=== PATIENT | female | born 1960 | race Caucasian/White ===

== ENCOUNTER 2017-02-24 09:50 | Inpatient (IN) | payer OTHER, SELFPAY | END 2017-02-27 09:45 | disposition home or self-care (01) | DRG 740 | PROVIDERS: Admitting Provider Obstetrics & Gynecology; Family Provider Family Medicine; Visit Provider Obstetrics & Gynecology | DX: D62 Acute posthemorrhagic anemia (principal); C54.1 Malignant neoplasm of endometrium; D25.9 Leiomyoma of uterus, unspecified; D27.0 Benign neoplasm of right ovary; N93.8 Other specified abnormal uterine and vaginal bleeding; N92.0 Excessive and frequent menstruation with regular cycle | CPT/HCPCS: 58150; 58925; 36415; 81001; 85014; 85018; 96372; 96375; J0131; J1956; J2405; J2710 ==

== ENCOUNTER → 2017-03-31 08:39 | Outpatient (CLI) | payer OTHER, SELFPAY ==
[2017-03-31 09:23] LABS: Blood Urea Nitrogen 9 mg/dL (7-18); Creatinine,Serum 0.71 mg/dL (0.55-1.02); Estimated Glomerular Filt Rate > 60 ml/min (>60); GFR (African American) > 60 ML/MIN (>60)
--- NOTE | 2017-03-31 13:00 | CT_ITS ---
CT abdomen pelvis w con CLINICAL INDICATION: ITS.REASON: ENDOMETRIAL CANCER ORDERING PHYSICIAN: Nell Rutledge PATIENT AGE: 56 years COMPARISON: None TECHNIQUE: Axial images obtained with sagittal and coronal reformats. PROCEDURE: Oral Contrast: Redicat IV Contrast: 75 mL's Isovue-370 performed in conjunction with the chest CT. FINDINGS: The liver, spleen, adrenal glands, gallbladder, pancreas, and kidneys have an unremarkable unenhanced CT appearance. There are extrarenal pelves bilaterally. No calyceal dilatation evident. No retroperitoneal adenopathy. No abdominal mass or abnormal fluid collection. Prior hysterectomy. Moderate amount of feces in the rectosigmoid region. No pelvic mass or adenopathy, focal inflammatory change, or abnormal fluid collection. There are postsurgical changes of the anterior abdominal wall. No acute bony anomalies or destructive bony lesions evident. There are mild degenerative changes of the lumbar spine IMPRESSION: 1. No convincing evidence of abdominal or pelvic metastasis. 2. Fecal stasis/constipation
--- NOTE | 2017-03-31 13:00 | CT_ITS ---
CT chest w con HISTORY: Endometrial cancer, evaluate for metastatic disease ITS.REASON: ENDOMETRIAL CANCER ORDERING PHYSICIAN: Nell Rutledge PATIENT AGE: 56 years TECHNIQUE: Axial images obtained. Sagittal and coronal reformatted images are also generated and reviewed. CONTRAST: 75ml Isovue 370 I.V. COMPARISON: None FINDINGS: No mediastinal or hilar mass or adenopathy. Normal heart size without evidence of pericardial effusion. Coronary artery calcifications are present. Severe centrilobular emphysematous change with biapical blebs. Calcified granuloma is present in the right middle lobe. No suspicious pulmonary nodules. No effusions or infiltrates. The aorta has an unremarkable appearance. No evidence of central pulmonary embolus. No acute bony anomalies. Mild degenerative changes of the thoracic spine. No bony destructive process evident. IMPRESSION: 1. No convincing evidence of thoracic metastatic disease. 2. Centrilobular emphysema with biapical blebs. 3. Coronary artery calcifications suggesting coronary artery disease
== END ==
PROVIDERS: Family Provider Family Medicine; PCP Family Medicine; Visit Provider Obstetrics & Gynecology Gynecologic Oncology
DX: C54.1 Malignant neoplasm of endometrium (principal)
CPT/HCPCS: 36415; 71260; 74177; 82565; 84520; Q9967

== ENCOUNTER 2023-04-22 09:14 | Emergency (ER) | payer SELFPAY ==
[2023-04-22 09:20] VITALS: BP 179/99; PULSE 70; RESP 18; TEMP 36.9; O2SAT 99; BMI 19.3
--- NOTE | 2023-04-22 09:46 | EXP.UTC ---
Discharge Plan Disposition Patient Disposition: Home, Self-Care Condition: Good Prescriptions Prescriptions: New methylprednisolone 4 mg Tablets,Dose Pack 4 mg PO DIRECTED 6 Days Qty: 21 0RF Rx Instructions: Take 1 pack as directed for 6 days nitrofurantoin monohyd/m-cryst [Macrobid] 100 mg Capsule 100 mg PO BID Qty: 10 0RF Rx Instructions: must administer with a meal/food cyclobenzaprine 10 mg Tablet 10 mg PO BID PRN (Reason: Muscle Spasm) Qty: 20 0RF No Action mv,Ca,hqv-[id number] no.157 [Estroven Maximum Strength] 400 mcg tablet 1 tab PO QDAY Referrals Follow up/Referrals: Provider,Referral, MD [Primary Care Provider] - See instructions Activity Restrictions/Add. Instructions Additional Instructions/Restrictions: Go home and rest. It would be best if you rested tomorrow too. No heavy lifting. No twisting. Take the oral medications as directed. Follow up with your regular doctor. GO TO THE ER FOR ANY WORSENING SYMPTOMS OR CONCERN, ESPECIALLY BOWEL OR BLADDER ISSUES, SADDLE AREA NUMBNESS, FEVER, ETC Drink plenty of fluids. We will culture the urine. That will tell what bacteria is causing your infection and which antibiotics will treat it best. Sometimes the first antibiotic we prescribe turns out to not work against different bacteria. So, make sure you follow up within 3 days if you are not getting better. The muscle relaxer (cyclobenzaprine--Flexeril) will make you drowsy, so don't drive or operate heavy machinery after taking it. Clinical Impressions Clinical Impression: UTI (urinary tract infection), Low back pain, Leg pain, right, Fall Instructions Patient Instructions: DI for Low Back Pain, DI for Urinary Tract Infection (UTI) Discharge ED Provider: Jalen Hernandez [facility] General Stated complaint: back pain, leg pain, poss UTI Time Seen by Provider: 04/22/23 09:45 History of Present Illness Provider Complaint: She states that she fell 6 days ago on the ice. She came down on her back. Since then she has had low back pain that radiates down her right leg. She has also had some dysuria and urinary frequency but those symptoms started a few weeks ago. Related Data Home Medications Medication Instructions Recorded Confirmed multivitamin,Ca,mineral-folic 1 tab PO QDAY 03/31/17 04/22/23 acid-herbal no.157 400 mcg tablet (Estroven Maximum Strength) Previous Rx's Medication Instructions Recorded cyclobenzaprine 10 mg tablet 10 mg PO BID PRN Muscle Spasm #20 04/22/23 tabs methylprednisolone 4 mg tablets in 4 mg PO DIRECTED 6 days #21 tabs 04/22/23 a dose pack nitrofurantoin 100 mg PO BID #10 caps 04/22/23 monohydrate/macrocrystals 100 mg capsule (Macrobid) Allergies Allergy/AdvReac Type Severity Reaction Status Date / Time amoxicillin Allergy Severe Anaphylaxis Verified 04/22/23 10:01 cephalexin [From KEFLEX] Allergy Severe anaphylaxis Verified 04/22/23 10:01 Penicillins Allergy Severe anaphylaxis Verified 04/22/23 10:01 codeine [CODEINE] Allergy Mild NA-NAUSEA/V Verified 04/22/23 10:01 OMITING PFSH PFSH Disclaimer: The information contained in this section may have been updated after the patient was seen, as this information can be updated by other users. Social History Smoking Status: Never smoker alcohol intake: never substance use type: denies use current occupational status: retired Travel in the last 8 weeks: None ROS Obtained: Yes All systems reviewed & no additional complaints except as documented Constitutional Constitutional: Reports system reviewed and no additional complaints, except as documented, Denies chills, Denies fever(s), Denies frequent falls, Denies headache(s) and Denies weakness Eyes Eyes: Denies eye discharge ENT Ears, Nose, Mouth, and Throat: Denies disequilibrium, Denies dysphagia, Denies headache(s), Denies sore throat, Denies throat swelling and Denies vertigo Cardiovascular Cardiovascular: Denies chest pain, Denies dyspnea and Denies syncope Respiratory Respiratory: Denies chest congestion, Denies cough and Denies dyspnea Gastrointestinal Gastrointestingal: Denies abdominal pain, constipation, diarrhea, dysphagia, nausea or vomiting Genitourinary Female Genitourinary: Reports as per HPI, Reports dysuria, Reports sexual dysfunction, Reports urinary frequency, Denies urinary incontinence and Reports urinary hesitancy Musculoskeletal Musculoskeletal: Reports as per HPI, Denies abnormal gait and Reports back pain Integumentary/Breasts Skin/Breast: Denies rash Neurologic Neurologic: Reports as per HPI, Denies abnormal gait, Denies confusion, Denies disequilibrium, Denies focal weakness, Denies frequent falls, Denies headache(s), Denies memory loss, Denies paresthesias, Reports radicular pain, Denies restless legs, Denies seizure-like activity, Denies sensory deficit, Denies syncope, Denies tremor(s), Denies vertigo and Denies weakness Allergic/Immunologic Allergic/Immunologic: Denies throat swelling Physical Exam General General appearance: alert and in no apparent distress Head Head exam: atraumatic, normocephalic and normal inspection Eye Eye exam: Present normal appearance, PERRL and EOMI ENT ENT exam: Present normal exam, normal oropharynx, mucous membranes moist, TM's normal bilaterally and normal external ear exam Neck Neck exam: Present normal inspection, full ROM and trachea midline; Absent meningismus or lymphadenopathy Chest Chest inspection: Present normal inspection and symmetric chest wall rise; Absent tenderness Respiratory Respiratory exam: Present normal lung sounds bilaterally; Absent respiratory distress Cardiovascular Cardiovascular exam: Present regular rate and normal rhythm; Absent JVD Abdominal Exam Abdominal exam: Present soft and normal bowel sounds; Absent distention, tenderness or guarding Extremities Exam Extremities exam: Present normal inspection, full ROM and normal capillary refill; Absent calf tenderness Back Exam Back exam: Present normal inspection; Absent tenderness Neurological Exam Neurological exam: Present alert, oriented X3, CN II-XII intact, normal gait and reflexes normal; Absent motor sensory deficit Expanded Neurological Exam Speech: Present fluid speech Cranial nerves: Normal: EOM function (II, III, IV, ), facial sensation (V), facial palsy (VII), gag reflex (IX), spinal accessory function (XI) and tongue deviation (XII) Cerebellar function: normal gait Motor strength - LUE: 5/5 Motor strength - RUE: 5/5 Motor strength - LLE: 5/5 Motor strength - RLE: 5/5 Upper motor neuron exam: Normal: richard neglect and sensory extinction Sensory exam upper extremity: Normal: light touch and 2 point discrimination Sensory exam lower extremity: Normal: light touch and 2 point discrimination DTR: 2+: biceps (L), biceps (R), patellar (L), patellar (R), Achilles tendon (L) and Achilles tendon (R) Spinal cord function: Absent saddle anesthesia Psychiatric Psychiatric exam: Present normal affect and normal mood Skin Skin exam: Present warm, dry, intact and normal color Lymphatic Lymphatic Findings: no adenopathy Medical Decision Making Medical Records Medical records reviewed: No I reviewed the patient's medical records. Yovani Inquiry Pt receiving controlled substance: No Orders (Tests/Meds): ORDERS Category Date Time Status Urine Culture Stat Micro 04/22/23 09:23 Received Radiology Data #1: Image(s): L-Spine Image Reviewed: Yes I reviewed the patient's radiology image and Yes I have reviewed radiologist's interpretation Preliminary Findings: No Fracture Seen FINAL REPORT CLINICAL HISTORY: FALL FINDINGS: LUMBAR SPINE Three views demonstrate no acute fracture. There is moderate disc space narrowing at multiple levels. There is lumbar scoliosis convex to the left measuring 11 degrees. There is no malalignment. IMPRESSION: Degenerative changes as above. Reviewed, Interpreted and Dictated by Sang Heard MD Transcribed by Susan Keith Authenticated and [facility] #2: Image(s): Hip Image Reviewed: Yes I reviewed the patient's radiology image and Yes I have reviewed radiologist's interpretation Preliminary Findings: No Fracture Seen FINAL REPORT CLINICAL HISTORY: FALL FINDINGS: Right hip Three views were obtained. There is no acute fracture or dislocation. There is marked narrowing of the right hip joint space. Subchondral sclerosis and degenerative osteophyte formation is identified. Findings are consistent with advanced osteoarthritis but can not exclude avascular necrosis of the femoral head. IMPRESSION: Advanced osteoarthritis but can not exclude avascular necrosis of the femoral head. Reviewed, Interpreted and Dictated by Sang Headr MD Transcribed by Susan Keith Authenticated and [facility]
--- NOTE | 2023-04-22 09:47 | XR_ITS ---
FINAL REPORT CLINICAL HISTORY: FALL FINDINGS: Right femur Two views were obtained. There is no acute fracture or dislocation. There is marked narrowing of the right hip joint space. Subchondral sclerosis and degenerative osteophyte formation is identified. Findings are consistent with advanced osteoarthritis but can not exclude avascular necrosis of the femoral head. IMPRESSION: Advanced osteoarthritis but can not exclude avascular necrosis of the femoral head. Reviewed, Interpreted and Dictated by aSng Heard MD Transcribed by Susan Keith Authenticated and . [facility]
[2023-04-22 10:18] LABS: Apearance,Urine Clear (Clear); Color,Urine Yellow (Yellow)
[2023-04-22 10:19] LABS: Bilirubin,Urine Negative (Negative); Blood, Urine 2+ (Negative); Glucose,Urine (UA) Negative (Negative); Ketones,Urine Negative (Negative); Protein,Urine Negative (Negative); Specific Gravity, Urine 1.015 (1.005-1.030); UTC Leukocyte Esterase,Urine Negative (Negative); UTC Nitrate,Urine Negative (Negative); Urobilinogen,Urine 0.2 EU/dl (0.2)
[2023-04-22] MEDS: KETOROLAC 60MG/2ML VIAL 30 MG IM (11:03)
[2023-04-22] MEDS: DEXAMETHASONE 4MG/ML 1ML VIAL 8 MG IM (11:04)
[2023-04-22 11:44] VITALS: BP 179/99; PULSE 70; RESP 18; TEMP 36.9; O2SAT 99
== END 2023-04-22 11:44 | disposition home or self-care (01) ==
PROVIDERS: Emergency Provider Nurse Practitioner Family
DX: N39.0 Urinary tract infection, site not specified (principal); M79.604 Pain in right leg; M54.59 Other low back pain; W00.0XXA Fall on same level due to ice and snow, initial encounter
CPT/HCPCS: 72100; 73502; 73552; 81003; 87086; 96372; 99204; 99212; G0463